=== PATIENT | male | born 1955 | race African-American/Black ===

== ENCOUNTER 2016-12-11 14:09 | Emergency (ER) | payer SELFPAY ==
[~2016-12-11] VITALS: Ht 175.3 cm; Wt 75.0 kg
[2016-12-11 14:45] VITALS: BP 124/79
[2016-12-11] MEDS ORDERED: NALOXONE HCL 1 MG/ML 2ML VIAL IM ONE (14:45)
== END 2016-12-11 18:07 | disposition home or self-care (01) ==
LOC: ER 14:22
DX: T40.1X1A Poisoning by heroin, accidental (unintentional), initial encounter (principal); G92 Toxic encephalopathy; F11.129 Opioid abuse with intoxication, unspecified; Y92.488 Other paved roadways as the place of occurrence of the external cause
CPT/HCPCS: 93005; 99283

== ENCOUNTER 2018-04-23 09:05 | Inpatient (IN) | payer MEDICARE, OTHER ==
[~2018-04-23] VITALS: Ht 167.6 cm; Wt 72.6 kg
[2018-04-23 12:03] LABS: BASOPHILS % 0.4 % (0.0-2.0); EOSINOPHILS % 2.1 % (0.0-5.0); HEMATOCRIT. 42.1 % (42.0-52.0); HEMOGLOBIN. 14.2 g/dL (14.0-18.0); LYMPHOCYTES % 16.2 % (20.0-50.0); MEAN CORPUSCULAR HEMOGLOBIN 32.2 pg (28.0-32.0); MEAN CORPUSCULAR VOLUME 95.3 fL (80.0-94.0); MEAN PLATELET VOLUME 7.8 fl (7.4-10.4); MONOCYTES % 6.2 % (2.0-8.0); NEUTROPHILS % 75.1 % (40.0-76.0); PLATELET 211 x1000/uL (130-400); RED BLOOD CELL COUNT 4.42 mill/uL (4.7-6.1); RED CELL DISTRIBUTION WIDTH 14.7 % (11.6-14.6)
[2018-04-23 13:44] LABS: CHLORIDE 106 mEq/L (98-107)
[2018-04-23 13:51] LABS: ETHANOL BLOOD < 10 mg/dL
[2018-04-23 16:58] LABS: CLARITY URINE CLEAR (CLEAR); COLOR URINE YELLOW (YELLOW); KETONES URINE TRACE (NEGATIVE); LEUKOCYTE ESTERASE URINE NEGATIVE (NEGATIVE); NITRITE URINE NEGATIVE (NEGATIVE); OCCULT BLOOD URINE NEGATIVE (NEGATIVE); PH URINE 7.5 (4.5-8.0); PROTEIN URINE TRACE (NEGATIVE); SPECIFIC GRAVITY URINE 1.013 (1.005-1.030)
[2018-04-23 17:23] LABS: *AMPHETAMINES SCREEN URINE NEGATIVE (NEGATIVE); *BARBITURATES SCREEN URINE NEGATIVE (NEGATIVE); *BENZODIAZEPINES SCREEN URINE PRESUMTIVE POSITIVE (NEGATIVE); *COCAINE SCREEN URINE NEGATIVE (NEGATIVE); CANNABINOID URINE SCREEN NEGATIVE (NEGATIVE); PHENCYCLIDINE URINE SCREEN NEGATIVE (NEGATIVE)
[2018-04-23 17:25] LABS: METHADONE URINE SCREEN NEGATIVE (NEGATIVE); OPIATES URINE SCREEN PRESUMTIVE POSITIVE (NEGATIVE)
[2018-04-23] MEDS ORDERED: ONDANSETRON HCL 4MG/2ML INJ IV PRN (17:30)
[2018-04-23] MEDS ORDERED: DOCUSATE SODIUM 100MG CAPSULE PO PRN (17:30)
[2018-04-23] MEDS ORDERED: ACETAMINOPHEN 325MG TABLET PO PRN (17:30)
[2018-04-23] MEDS ORDERED: IPRATROPIUM/ALBUTEROL 0.5-3(2.5)MG/3ML NEB INH PRN (17:30)
[2018-04-23] MEDS ORDERED: HYDROCODONE/ACETAMINOPHEN 5/325MG TABLET PO PRN (17:30)
[2018-04-23] MEDS ORDERED: LORAZEPAM 0.5MG TABLET PO PRN (17:30)
[2018-04-23 18:24] LABS: FOLIC ACID (FOLATE) SERUM 18.3 ng/mL (>5.38)
[2018-04-23] MEDS: CLONIDINE 0.1MG TABLET PO PRN (18:32)
[2018-04-23 23:15] VITALS: BP 173/81
[2018-04-23 23:30] VITALS: BP 173/81
[2018-04-24] VITALS: BP 165/85
[2018-04-24 04:00] VITALS: BP 137/80
[2018-04-24 06:40] LABS: BASOPHILS % 0.6 % (0.0-2.0); EOSINOPHILS % 4.2 % (0.0-5.0); HEMATOCRIT. 41.6 % (42.0-52.0); HEMOGLOBIN. 14.5 g/dL (14.0-18.0); LYMPHOCYTES % 22.3 % (20.0-50.0); MEAN CORPUSCULAR HEMOGLOBIN 33.2 pg (28.0-32.0); MEAN CORPUSCULAR VOLUME 95.3 fL (80.0-94.0); MEAN PLATELET VOLUME 7.8 fl (7.4-10.4); MONOCYTES % 9.9 % (2.0-8.0); PLATELET 191 x1000/uL (130-400); RED BLOOD CELL COUNT 4.37 mill/uL (4.7-6.1); RED CELL DISTRIBUTION WIDTH 14.5 % (11.6-14.6)
[2018-04-24 07:30] LABS: CHLORIDE 109 mEq/L (98-107)
[2018-04-24 08:00] VITALS: BP 159/100
[2018-04-24] MEDS: FOLIC ACID 1MG TABLET PO SCH (09:27)
[2018-04-24] MEDS: MULTIVITAMINS,THER W-MINERALS TABLET PO SCH (09:27)
[2018-04-24] MEDS: THIAMINE HCL 100MG TABLET PO SCH (09:27)
[2018-04-24] MEDS: CLONIDINE 0.1MG TABLET PO PRN (09:48)
[2018-04-24 11:58] LABS: T4 FREE 0.99 ng/dL (0.76-1.46)
[2018-04-24 12:00] VITALS: BP 147/63
[2018-04-24 16:00] VITALS: BP 146/72
[2018-04-24 20:00] VITALS: BP 152/78
[2018-04-24] MEDS: AMLODIPINE 5MG TABLET PO SCH (22:03)
[2018-04-25] VITALS: BP 160/76
[2018-04-25 04:00] VITALS: BP 153/77
[2018-04-25 07:43] LABS: CHLORIDE 108 mEq/L (98-107)
[2018-04-25 07:50] LABS: BASOPHILS % 0.4 % (0.0-2.0); EOSINOPHILS % 2.3 % (0.0-5.0); HEMATOCRIT. 43.1 % (42.0-52.0); HEMOGLOBIN. 14.7 g/dL (14.0-18.0); LYMPHOCYTES % 20.5 % (20.0-50.0); MEAN CORPUSCULAR HEMOGLOBIN 32.4 pg (28.0-32.0); MEAN CORPUSCULAR VOLUME 94.9 fL (80.0-94.0); MEAN PLATELET VOLUME 7.6 fl (7.4-10.4); MONOCYTES % 8.8 % (2.0-8.0); PLATELET 189 x1000/uL (130-400); RED BLOOD CELL COUNT 4.54 mill/uL (4.7-6.1); RED CELL DISTRIBUTION WIDTH 14.4 % (11.6-14.6)
[2018-04-25 08:00] VITALS: BP 139/70
[2018-04-25] MEDS: MULTIVITAMINS,THER W-MINERALS TABLET PO SCH (08:21)
[2018-04-25] MEDS: THIAMINE HCL 100MG TABLET PO SCH (08:21)
[2018-04-25] MEDS: FOLIC ACID 1MG TABLET PO SCH (08:21)
[2018-04-25] MEDS: AMLODIPINE 5MG TABLET PO SCH (08:21)
[2018-04-25] MEDS ORDERED: ENOXAPARIN 40MG/0.4ML SYR SUBCUT SCH (10:00)
[2018-04-25] MEDS ORDERED: GABAPENTIN 100MG CAPSULE PO SCH (14:00)
== END 2018-04-25 10:32 | disposition left against medical advice (07) | DRG 304 ==
LOC: ER 09:05 → 8WST 14:04 → ENRESERV 21:04
PROVIDERS: ADMIT Internal Medicine; ATTEND Internal Medicine
DX: I16.0 Hypertensive urgency (principal); G92 Toxic encephalopathy; I11.0 Hypertensive heart disease with heart failure; I50.9 Heart failure, unspecified; R90.82 White matter disease, unspecified; R00.1 Bradycardia, unspecified; G62.9 Polyneuropathy, unspecified; F13.10 Sedative, hypnotic or anxiolytic abuse, uncomplicated; F11.10 Opioid abuse, uncomplicated; Z53.21 Procedure and treatment not carried out due to patient leaving prior to being seen by health care provider; Z87.81 Personal history of (healed) traumatic fracture; Z86.73 Personal history of transient ischemic attack (TIA), and cerebral infarction without residual deficits
CPT/HCPCS: 36415; 70551; 71045; 80048; 80061; 80305; 82140; 82607; 82746; 82962; 83036; 84439; 84443; 84481; 93005; 93306; 96374; 97161; 99285